=== PATIENT | female | born 1950 | race Two or more races ===

== ENCOUNTER 2017-12-09 12:45 | Inpatient (IN) | payer OTHER ==
[~2017-12-09] VITALS: Ht 170.2 cm; Wt 109.8 kg
[2017-12-09] MEDS ORDERED: LIPITOR20 MG PO (15:37)
[2017-12-09] MEDS ORDERED: INVOKAMET 150-1 EACH PO (15:37)
[2017-12-09] MEDS ORDERED: LOVAZA1 GM PO (15:38)
[2017-12-09] MEDS ORDERED: SINGULAIR10 MG PO (15:38)
[2017-12-09] MEDS ORDERED: XYZAL5 MG PO (15:38)
[2017-12-09] MEDS ORDERED: COZAAR100 MG PO (15:38)
== END 2017-12-16 10:43 | disposition home or self-care (01) | DRG 735 ==
LOC: O/R 12-15 06:01 → SURG 12-15 12:45 → OB/GYN 12-15 15:32 → SURG 12-15 16:30 → OB/GYN 12-16 10:43
PROVIDERS: Obstetrics & Gynecology Gynecologic Oncology
PROC: 07TC4ZZ Resection of Pelvis Lymphatic, Percutaneous Endoscopic Approach (ICD-10-PCS; 2017-12-15)
PROC: 0UT74ZZ Resection of Bilateral Fallopian Tubes, Percutaneous Endoscopic Approach (ICD-10-PCS; 2017-12-15)
PROC: 0UT24ZZ Resection of Bilateral Ovaries, Percutaneous Endoscopic Approach (ICD-10-PCS; 2017-12-15)
PROC: 0TJB8ZZ Inspection of Bladder, Via Natural or Artificial Opening Endoscopic (ICD-10-PCS; 2017-12-15)
PROC: 0DJD8ZZ Inspection of Lower Intestinal Tract, Via Natural or Artificial Opening Endoscopic (ICD-10-PCS; 2017-12-15)
PROC: 0UT94ZZ Resection of Uterus, Percutaneous Endoscopic Approach (ICD-10-PCS; principal; 2017-12-15 16:30)
DX: C56.1 Malignant neoplasm of right ovary (principal)

== ENCOUNTER 2024-12-11 19:00 | Emergency (ER) | payer OTHER ==
[~2024-12-11] VITALS: Ht 167.6 cm; Wt 111.6 kg
[~2024-12-11 19:00] MED LIST: COZAAR100 MG PO; INVOKAMET 150-1 EACH PO; LIPITOR20 MG PO; LOVAZA1 GM PO; SINGULAIR10 MG PO; TRIJARDY XR 121 EACH PO; XYZAL5 MG PO
[2024-12-11] MEDS ORDERED: 0.9 % SODIUM CHLORIDE 1,000 ML IV SCH (19:16)
[2024-12-11] MEDS ORDERED: ONDANSETRON HCL 2 MG/ML VIAL IV STA (19:17)
[2024-12-11] MEDS ORDERED: KETOROLAC TROMETHAMINE 30 MG VIAL IV ONE (19:30)
[2024-12-11 20:21] LABS: HEMATOCRIT 45.2 % (36.0-45.00); MEAN CELL VOLUME 82.6 fL (80.00-100.00); MEAN CORPUSCULAR HEMOGLOBIN 27.4 pg (27.00-32.0); MEAN CORPUSCULAR HGB CONC 33.3 g/dl (32.0-36.0); PLATELET COUNT 296 K/uL (150-450); RED BLOOD COUNT 5.47 M/uL (4.00-6.00); RED CELL DISTRIBUTION WIDTH 14.6 % (11.5-14.5)
[2024-12-11 20:48] LABS: URINE APPEARANCE Clear; URINE BILIRRUBIN Negative (NEGATIVE); URINE BLOOD Moderate; URINE COLOR Yellow; URINE LEUKOCYTE Negative; URINE NITRATE Negative; URINE PROTEIN Negative (NEGATIVE); URINE UROBILINOGEN 0.2 E.U./dl
[2024-12-11 20:49] LABS: URINE EPITHELIAL CELLS 14.5 uL (0.0-38.8); URINE RBC 83.8 uL (0.0-20.8); URINE WBC 17.4 uL (0.0-23.2)
[2024-12-11 20:49] LABS: CALCIUM 10.3 mg/dL (8.5-10.1); CREATININE SERUM 0.58 mg/dL (0.55-1.02); GFR 102.19; POTASSIUM 4.32 mEq/L (3.5-5.1)
[2024-12-11 20:51] LABS: URINE GLUCOSE >=1000 MG/DL (NEGATIVE)
[2024-12-11 20:52] LABS: URINE KETONE 40 (NEGATIVE)
== END 2024-12-11 23:55 | disposition home or self-care (01) ==
LOC: ER 19:02
PROVIDERS: Emergency Medicine
DX: K52.89 Other specified noninfective gastroenteritis and colitis (principal); R11.10 Vomiting, unspecified; I10 Essential (primary) hypertension; E11.9 Type 2 diabetes mellitus without complications; Z79.84 Long term (current) use of oral hypoglycemic drugs; Z91.013 Allergy to seafood
CPT/HCPCS: 36415; 96365; 96366; 99282; J1885; J2405; J7030